=== PATIENT | male | born 1960 ===

== ENCOUNTER 2016-07-15 21:57 | Emergency (ER) | payer SELFPAY ==
[2016-07-15] MEDS ORDERED: HYDROCODONE/ACETAMINOPHEN 5/325MG TABLET ONE (23:10)
[2016-07-15] MEDS ORDERED: IBUPROFEN 800 MG TABLET ONE (23:10)
[2016-07-15] MEDS ORDERED: DIPHTH,PERTUSS(ACELL),TET VAC 0.5 ML VIAL IM V ONE (23:45)
--- NOTE | 2016-07-16 08:31 | RAD ---
HIP - RIGHT 2 VW + AP PELVIS COMPARISON: None HISTORY: Right hip pain after a log fell on his right hip. FINDINGS: Views: AP pelvis. Right hip AP and lateral. Bones: Normal. Joints: The symphysis pubis is 12 mm in width. There is asymmetry in the width of sacroiliac joints, greater on the right than left. Soft tissues: Normal. Bones: Severe degenerative changes in the lower lumbar spine. IMPRESSION: 1. No fracture. 2. Widely normal symphysis pubis and right sacroiliac joint. Differential diagnosis is normal variant or mild diastases. The results were discussed with Francisco Phan M.D. 07/16/2016 at 08:27.
== END 2016-07-16 00:06 | disposition home or self-care (01) ==
LOC: ED 21:57
DX: S30.0XXA Contusion of lower back and pelvis, initial encounter (principal); I10 Essential (primary) hypertension; W20.8XXA Other cause of strike by thrown, projected or falling object, initial encounter; Y92.89 Other specified places as the place of occurrence of the external cause; Y99.0 Civilian activity done for income or pay; Z23 Encounter for immunization
CPT/HCPCS: 90715; 73502; 90471; 99284; 99283; A9270 ×2